=== PATIENT | male | born 2000 | race American Indian/Alaskan Native ===

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

== ENCOUNTER 2020-09-27 20:13 | Emergency (ER) | payer SELFPAY ==
--- NOTE | 2020-09-27 20:35 | Event Note ---
ED Screening Note Date of service: 09/27/20 Time: 20:35 ED Screening Note: 20-year-old male presents emerged department chief complaint of left wrist pain after the past few days. He reports he fractured it for years ago and thinks he may have reinjured it. This initial assessment/diagnostic orders/clinical plan/treatment(s) is/are subject to change based on patients health status, clinical progression and re- assessment by fellow clinical providers in the ED. Further treatment and workup at subsequent clinical providers discretion. Patient/guardian urged not to elope from the ED as their condition may be serious if not clinically assessed and managed. Initial orders include: X-ray left wrist
[2020-09-27 20:42] VITALS: BP 124/66
--- NOTE | 2020-09-27 21:19 | XRay Report ---
LEFT WRIST 4 VIEW(S) INDICATION / CLINICAL INFORMATION: pain to medial wrist COMPARISON: None available. FINDINGS: BONES / JOINT(S): No acute fracture or subluxation. No significant arthritis. SOFT TISSUES: No significant abnormality. ADDITIONAL FINDINGS: None. Signer Name: Daniel Betancur MD Signed: 09/27/2020 9:15 PM Workstation Name: [id number]
[2020-09-27] MEDS ORDERED: IBUPROFEN 800 MG TAB PO ONE (21:43)
--- NOTE | 2020-09-27 21:49 | Emergency Department Report ---
ED Upper Extremity Inj HPI - General Chief Complaint: Extremity Injury, Upper Stated Complaint: LEFT HAND WEAKNESS/PAIN Time Seen by Provider: 09/27/20 21:35 Source: patient Mode of arrival: Ambulatory Limitations: No Limitations - History of Present Illness Initial Comments: 20-year-old [id number] male with a past medical history of fracture to left wrist 3 to 4 years ago presents to the hospital planing of nontraumatic left sided wrist pain. Pain is worse on the ulnar side of the wrist. Patient denies recent fall or injury. Pain is constant, aching, rated 7/10 intensity, worse with movement and palpation. No fever reported. Patient take jmnr-hih-vbroiyw Motrin without improvement in you wearing a Yazan bandage that he bought tiog-ycv-kcuorch. 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 perform his duties - Related Data Previous Rx's Medication Instructions Recorded Last Taken Type Sulfamethoxazole/Trimethoprim 1 each PO BID #14 tablet 05/10/18 Unknown Rx [Bactrim DS TAB] Ibuprofen [Motrin] 800 mg PO Q8HR PRN #30 tablet 09/27/20 Unknown Rx traMADoL [Ultram 50 MG tab] 50 mg PO Q6HR PRN #15 tablet 09/27/20 Unknown Rx Allergies Allergy/AdvReac Type Severity Reaction Status Date / Time No Known Allergies Allergy Unverified 05/10/18 20:24 ED Review of Systems ROS: Stated complaint: LEFT HAND WEAKNESS/PAIN Other details as noted in HPI Comment: All other systems reviewed and negative ED Past Medical Hx - Past Medical History Previous Medical History?: Yes Additional medical history: Left Wrist Fracture. - Surgical History Past Surgical History?: Yes Additional Surgical History: Left wrist - Social History Smoking Status: Former Smoker Substance Use Type: None - Medications Home Medications: Home Medications Medication Instructions Recorded Confirmed Last Taken Type Sulfamethoxazole/Trimethoprim 1 each PO BID #14 tablet 05/10/18 Unknown Rx [Bactrim DS TAB] Ibuprofen [Motrin] 800 mg PO Q8HR PRN #30 tablet 09/27/20 Unknown Rx traMADoL [Ultram 50 MG tab] 50 mg PO Q6HR PRN #15 tablet 09/27/20 Unknown Rx ED Physical Exam - General Limitations: No Limitations - Other Other exam information: General: No acute distress Head: Atraumatic Eyes: normal appearance ENT: Moist mucous membranes Neck: Normal appearance, no midline tenderness Chest: Clear to auscultation bilaterally CV: Regular rate and rhythm Abdomen: Soft, normal bowel sounds, nontender, nondistended, no rebound or guarding Back: Normal inspection Extremity: Normal inspection, no erythema, warmth, or swelling. Tender to palpation of left wrist greatest on the ulnar side and extending up to the fifth carpal. No deformity. Full range of motion. 2+ radial pulse Neuro: Alert O x 3, no facial asymmetry, speech clear, no gross motor sensory deficit Psych: Appropriate behavior Skin: No rash ED Course Vital Signs 09/27/20 20:41 Temperature 98.0 F Pulse Rate 91 H Respiratory 18 Rate Blood Pressure 124/66 O2 Sat by Pulse 97 Oximetry ED Medical Decision Making - Radiology Data Radiology results: report reviewed Left wrist x-ray: No fracture - Medical Decision Making Patient has nontraumatic pain to his left wrist with no acute findings on x-ray and no clinical signs of infection. Patient can be experiencing inflammation secondary to previous history of fracture. Patient treated with Motrin and will be discharged on Motrin and tramadol as well is provided a wrist splint. Out patient orthopedic follow-up encouraged Critical Care Time: No Critical care attestation.: If time is entered above; I have spent that time in minutes in the direct care of this critically ill patient, excluding procedure time. ED Disposition Clinical Impression: Left wrist sprain Disposition: - TO HOME OR SELFCARE Is pt being admited?: No Does the pt Need Aspirin: No Condition: Stable Instructions: Wrist Sprain, Adult Additional Instructions: Take the medication as prescribed. Follow-up with your doctor or doctor/clinic provided. Return if symptoms worsen as indicated by your discharge instructions. Prescriptions: Ibuprofen [Motrin] 800 mg PO Q8HR PRN #30 tablet PRN Reason: Pain , Severe (7-10) traMADoL [Ultram 50 MG tab] 50 mg PO Q6HR PRN #15 tablet PRN Reason: Pain [facility] [Primary Care Provider] - 3-5 Days JAZLYN MEJIA MD [Staff Physician] - 3-5 Days (Orthopedic doctor) Time of Disposition: 21:48
== END 2020-09-27 22:30 | disposition home or self-care (01) ==
LOC: ED 20:13
DX: S63.502A Unspecified sprain of left wrist, initial encounter (principal); Z79.899 Other long term (current) drug therapy; Z87.891 Personal history of nicotine dependence; Z98.890 Other specified postprocedural states; X58.XXXA Exposure to other specified factors, initial encounter; Y93.89 Activity, other specified; Y92.89 Other specified places as the place of occurrence of the external cause; Y99.8 Other external cause status

== ENCOUNTER 2020-11-29 15:57 | Emergency (ER) | payer SELFPAY ==
[2020-11-29 16:32] VITALS: BP 151/77
--- NOTE | 2020-11-29 16:41 | Emergency Department Report ---
ED Extremity Problem HPI - General Chief complaint: Extremity Injury, Upper Stated complaint: RT MIDDLE FINGER Time Seen by Provider: 11/29/20 16:36 Source: patient Mode of arrival: Ambulatory Limitations: No Limitations - History of Present Illness Initial comments: This is a 20-year-old male presents to ED complaining of right hand pain x1 day. Patient states that he was helping his brother move some furniture yesterday when the fine nature slipped and hit his right hand. Patient states he is on some swelling since the incident. Patient states he is able to make a fist as well as extend the hand without any problem. Patient denies any cuts or scrapes. MD Complaint: extremity pain, extremity swelling Location: right -: Yes arthralgia Severity scale (0 -10): 8 - Related Data Previous Rx's Medication Instructions Recorded Last Taken Type Sulfamethoxazole/Trimethoprim 1 each PO BID #14 tablet 05/10/18 Unknown Rx [Bactrim DS TAB] traMADoL [Ultram 50 MG tab] 50 mg PO Q6HR PRN #15 tablet 09/27/20 Unknown Rx Ibuprofen [Motrin 800 MG tab] 800 mg PO Q8HR PRN #30 tablet 11/29/20 Unknown Rx Allergies Allergy/AdvReac Type Severity Reaction Status Date / Time No Known Allergies Allergy Verified 11/29/20 16:28 ED Review of Systems ROS: Stated complaint: RT MIDDLE FINGER Other details as noted in HPI Comment: All other systems reviewed and negative ED Past Medical Hx - Past Medical History Hx Asthma: Yes Additional medical history: Left Wrist Fracture. - Surgical History Additional Surgical History: Left wrist - Social History Smoking Status: Former Smoker Substance Use Type: None - Medications Home Medications: Home Medications Medication Instructions Recorded Confirmed Last Taken Type Sulfamethoxazole/Trimethoprim 1 each PO BID #14 tablet 05/10/18 Unknown Rx [Bactrim DS TAB] traMADoL [Ultram 50 MG tab] 50 mg PO Q6HR PRN #15 tablet 09/27/20 Unknown Rx Ibuprofen [Motrin 800 MG tab] 800 mg PO Q8HR PRN #30 tablet 11/29/20 Unknown Rx ED Physical Exam - General Limitations: No Limitations - Neck Neck exam: Present: normal inspection, full ROM. Absent: tenderness, lymphadenopathy - Respiratory Respiratory exam: Present: normal lung sounds bilaterally. Absent: respiratory distress, chest wall tenderness, accessory muscle use - Cardiovascular Cardiovascular Exam: Present: regular rate, normal rhythm - Extremities Exam Extremities exam: Present: normal inspection, full ROM, tenderness (To palpation of the right hand), normal capillary refill, joint swelling (Minimal swelling to the medical). Absent: pedal edema - Back Exam Back exam: Present: normal inspection, full ROM. Absent: tenderness, CVA tenderness (L) - Neurological Exam Neurological exam: Present: alert, oriented X3, CN II-XII intact, normal gait - Skin Skin exam: Present: warm, intact ED Course Vital Signs 11/29/20 16:31 Temperature 98.8 F Pulse Rate 102 H Respiratory 18 Rate Blood Pressure 151/77 [Right] O2 Sat by Pulse 100 Oximetry ED Medical Decision Making - Radiology Data Radiology results: report reviewed, image reviewed Fluoro Time In Minutes: RIGHT HAND 3 VIEWS INDICATION / CLINICAL INFORMATION: Right hand pain and swelling. COMPARISON: None available. FINDINGS: BONES and JOINT(S): No acute fracture or subluxation. No significant arthritis. SOFT TISSUES: No significant abnormality. ADDITIONAL FINDINGS: None. IMPRESSION: 1. No acute findings. Signer Name: Tim Thibodeaux MD Signed: 11/29/2020 4:52 PM Workstation Name: [id number] Transcribed By: SPARKLE Dictated By: Tim Thibodeaux MD Electronically Authenticated By: Tim Thibodeaux MD Signed Date/Time: 11/29/201651 - Medical Decision Making 20-year-old male presents to ED with right hand pain ED course: Patient received xray in ED. xray was normal Vital signs are normal patient is in no acute distress Discussed with patient follow-up with primary care physician. Discussed the patient and take medications as prescribed. Patient has no neurological deficit. Patient is alert and oriented 3 and understands all instructions given. Critical care attestation.: If time is entered above; I have spent that time in minutes in the direct care of this critically ill patient, excluding procedure time. ED Disposition Clinical Impression: Right hand pain Disposition: DC-01 TO HOME OR SELFCARE Is pt being admited?: No Does the pt Need Aspirin: No Condition: Stable Instructions: How to Use Cold Therapy, Acty-sa-Mvek, Hand Pain Additional Instructions: Make sure to follow up with the primary care physician as discussed. Take all your medications as you've been prescribed. If you have any worsening symptoms or develop new symptoms please return to ED immediately. Prescriptions: Ibuprofen [Motrin 800 MG tab] 800 mg PO Q8HR PRN #30 tablet PRN Reason: Pain , Severe (7-10) Referrals: [facility] [Outside] - 3-5 Days [facility] [Outside] - 3-5 Days Forms: Work/School Release Form(ED) Time of Disposition: 17:12
--- NOTE | 2020-11-29 16:56 | XRay Report ---
RIGHT HAND 3 VIEWS INDICATION / CLINICAL INFORMATION: Right hand pain and swelling. COMPARISON: None available. FINDINGS: BONES and JOINT(S): No acute fracture or subluxation. No significant arthritis. SOFT TISSUES: No significant abnormality. ADDITIONAL FINDINGS: None. IMPRESSION: 1. No acute findings. Signer Name: Tim Thibodeaux MD Signed: 11/29/2020 4:52 PM Workstation Name: [id number]
== END 2020-11-29 17:21 | disposition home or self-care (01) ==
LOC: ED 15:57
DX: M79.641 Pain in right hand (principal); J45.909 Unspecified asthma, uncomplicated; Z87.891 Personal history of nicotine dependence; Z79.899 Other long term (current) drug therapy
CPT/HCPCS: 99283

== ENCOUNTER 2020-12-04 17:13 | Emergency (ER) | payer SELFPAY ==
[2020-12-04 17:20] VITALS: BP 138/64
--- NOTE | 2020-12-04 17:53 | Emergency Department Report ---
Upper Extremity - HPI Chief Complaint: Extremity Injury, Upper Stated Complaint: RT HAND INJURY Time Seen by Provider: 12/04/20 17:42 Upper Extremity: Right Hand Occurred When: >5 Days (6 days ago) Mechanism: Other (Patient states that he dropped a dresser on his right hand) Severity: mild Symptoms: Yes Pain with Movement, Yes Swelling, No Deformity, No Limited Range of Movement, No Numbness, No Weakness, No Bruising/Ecchymosis, No Laceration or Abrasion Other History: 20-year-old male presents to the ER today complaint of right hand injury. Patient states that he was helping lift furniture when he actually dropped a dresser on top of his right hand. This occurred about 6 days ago. Patient states that it is still mildly swollen. He denies any bruising, open wounds or erythema. He has been taking Motrin but without much relief. He reports no other symptoms at this time. ED Review of Systems ROS: Stated complaint: RT HAND INJURY Other details as noted in HPI Comment: All other systems reviewed and negative Musculoskeletal: joint swelling, arthralgia ED Past Medical Hx - Past Medical History Previous Medical History?: Yes Hx Asthma: Yes Additional medical history: Left Wrist Fracture. - Surgical History Past Surgical History?: Yes Additional Surgical History: Left wrist - Social History Smoking Status: Never Smoker Substance Use Type: None - Medications Home Medications: Home Medications Medication Instructions Recorded Confirmed Last Taken Type Sulfamethoxazole/Trimethoprim 1 each PO BID #14 tablet 05/10/18 Unknown Rx [Bactrim DS TAB] traMADoL [Ultram 50 MG tab] 50 mg PO Q6HR PRN #15 tablet 09/27/20 Unknown Rx Ibuprofen [Motrin 800 MG tab] 800 mg PO Q8HR PRN #30 tablet 12/04/20 Unknown Rx Upper Extremity Exam - Exam General: Vital signs noted. No distress. Alert and acting appropriately. Head and Torso: No HEENT Abnormality, No Chest/Lungs Abnormality Wrist: Yes Normal ROM in Wrist, No Wrist Tenderness Hand: Yes Hand Tenderness (Mild tenderness to palpation over the third MCP joint of the right hand. No apparent swelling, bruising, deformity or open wound.), Yes Normal ROM in Digit(s), No Hand Deformity, No Digit Tenderness, No Digit(s) Deformity, No Tendon Dysfunction CMS Exam: Yes Normal Distal Pulses, Yes Normal Capillary Refill, Yes Normal Distal Sensation, No Broken Skin ED Course Vital Signs 12/04/20 17:18 Temperature 98.4 F Pulse Rate 93 H Respiratory 18 Rate Blood Pressure 138/64 O2 Sat by Pulse 98 Oximetry ED Medical Decision Making - Radiology Data Radiology results: report reviewed Patient: ROBINSON MOBLEY JR MR#: [id number] : 2000 Acct:[id number] Age/Sex: 20 / M ADM Date: 12/04/20 Loc: ED Attending Dr: Ordering Physician: AUBRIE PEARSON Date of Service: 12/04/20 Procedure(s): XR hand 3+V RT Accession Number(s): [id number] cc: AUBRIE PEARSON Fluoro Time In Minutes: HISTORY:hand injury COMPARISON: None. TECHNIQUE: AP lateral and obliques views were obtained FINDINGS: Bones: No fracture or dislocation. Joint spaces: Maintained. Soft tissues: No significant abnormality. Additional findings: None. IMPRESSION: 1. No significant abnormality. Signer Name: Rickie Fuentes MD Signed: 12/04/2020 6:46 PM Workstation Name: [id number] Transcribed By: BERLIN Dictated By: Rickie Fuentes MD Electronically Authenticated By: Rickie Fuentes MD Signed Date/Time: 12/04/201845 DD/ 44 TD/TT: Critical care attestation.: If time is entered above; I have spent that time in minutes in the direct care of this critically ill patient, excluding procedure time. ED Disposition Clinical Impression: Contusion, hand Disposition: DC-01 TO HOME OR SELFCARE Is pt being admited?: No Does the pt Need Aspirin: No Condition: Stable Instructions: Hand Contusion, [id number] Additional Instructions: Take the motrin as prescribed. Follow up with Environmental Services Supervisor in 1-2 weeks if symptoms persist. Return to ED if symptoms changes or worsens. Prescriptions: Ibuprofen [Motrin 800 MG tab] 800 mg PO Q8HR PRN #30 tablet PRN Reason: Pain , Severe (7-10) Referrals: [facility] [Provider Group] - 7-10 days Time of Disposition: 19:12
--- NOTE | 2020-12-04 18:50 | XRay Report ---
HISTORY:hand injury COMPARISON: None. TECHNIQUE: AP lateral and obliques views were obtained FINDINGS: Bones: No fracture or dislocation. Joint spaces: Maintained. Soft tissues: No significant abnormality. Additional findings: None. IMPRESSION: 1. No significant abnormality. Signer Name: Rikcie Fuentes MD Signed: 12/04/2020 6:46 PM Workstation Name: [id number]
== END 2020-12-04 19:30 | disposition home or self-care (01) ==
LOC: ED 17:13
DX: S60.221A Contusion of right hand, initial encounter (principal); J45.909 Unspecified asthma, uncomplicated; Z79.899 Other long term (current) drug therapy; Z98.890 Other specified postprocedural states; X58.XXXA Exposure to other specified factors, initial encounter; Y93.89 Activity, other specified; Y92.89 Other specified places as the place of occurrence of the external cause; Y99.8 Other external cause status
CPT/HCPCS: 99283